=== PATIENT | female | born 1965 | race Caucasian/White ===

== ENCOUNTER 2018-03-17 11:49 | Outpatient (REF) | payer BC, SELFPAY ==
[2018-03-17 21:42] LABS: TSH 3.36 uIU/mL (0.358-3.74)
== END 2018-03-17 12:09 ==
LOC: NCHCN 11:49
PROVIDERS: PCP Family Medicine; Visit Provider Registered Nurse
DX: E03.9 Hypothyroidism, unspecified (principal)
CPT/HCPCS: 84443

== ENCOUNTER 2019-04-30 18:04 | Outpatient (REF) | payer BC, SELFPAY ==
[2019-04-30 21:31] LABS: TSH (W/Ref FT4) 4.13 uIU/mL (0.36-3.74)
[2019-04-30 21:49] LABS: FREE T4 0.88 ng/dL (0.76-1.46)
== END 2019-04-30 18:24 ==
LOC: NCHCN 18:04
PROVIDERS: PCP Family Medicine; Visit Provider Registered Nurse
DX: R53.83 Other fatigue (principal)
CPT/HCPCS: 84439; 84443

== ENCOUNTER 2019-06-15 15:08 | Outpatient (REF) | payer BC, SELFPAY ==
[2019-06-15 22:03] LABS: TSH (W/Ref FT4) 1.81 uIU/mL (0.36-3.74)
== END 2019-06-15 15:28 ==
LOC: NCHCN 15:08
PROVIDERS: PCP Family Medicine; Visit Provider Registered Nurse
DX: E03.9 Hypothyroidism, unspecified (principal)
CPT/HCPCS: 84443

== ENCOUNTER 2020-10-07 16:28 | Outpatient (REF) | payer BC, SELFPAY ==
[2020-10-07 21:02] LABS: TSH 1.64 uIU/mL (0.36-3.74)
== END 2020-10-07 16:29 | disposition home or self-care (01) ==
LOC: NCHCN 16:28
PROVIDERS: PCP Family Medicine; Visit Provider Registered Nurse
DX: E03.9 Hypothyroidism, unspecified (principal)
CPT/HCPCS: 84443

== ENCOUNTER 2022-02-21 21:17 | Outpatient (REF) | payer BC, SELFPAY ==
[2022-02-21 21:44] LABS: HCT 40.4 % (36.0-46.0); HGB 13.4 g/dL (11.2-15.7); MCH 30.4 pg (27.0-33.0); MCHC 33.2 % (32.0-36.0); MCV 92 fL (80-95); MPV 10.4 fL (8.0-11.0); Platelet Count 252 10^3/uL (130-400); RBC 4.41 10^6/uL (3.93-5.22); RDW 11.7 % (11.7-14.6); RDW-SD 39.6 fL; WBC 5.74 10^3/uL (4.4-10.8)
[2022-02-21 22:04] LABS: ALT 31 U/L (14-59); AST 21 U/L (15-37); Albumin 4.1 g/dL (3.4-5.0); Alkaline Phosphatase 73 U/L (46-116); Anion Gap 7.6 mmol/L (3-11); BUN 23 mg/dL (7-18); Bilirubin, Total 0.3 mg/dL (0.2-1.0); CO2 29.4 mmol/L (21.0-32.0); Calcium 9.4 mg/dL (8.5-10.1); Calculated LDL 156 mg/dL (<100); Chloride 104 mmol/L (98-107); Cholesterol 275 mg/dL (<200); Estimated GFR 66.95 (mL/min/1.73m2); Glucose 79 mg/dL (74-106); HDL Cholesterol 48 mg/dL (40-60); Potassium 4.1 mmol/L (3.5-5.1); Sodium 141 mmol/L (136-145); TSH 2.55 uIU/mL (0.36-3.74); Total Protein 7.5 g/dL (6.4-8.2); Triglyceride 357 mg/dL (<150)
== END 2022-02-21 21:18 | disposition home or self-care (01) ==
LOC: NCHCN 21:17
PROVIDERS: PCP Family Medicine; Visit Provider Registered Nurse
DX: E03.9 Hypothyroidism, unspecified (principal); E78.5 Hyperlipidemia, unspecified; Z00.00 Encounter for general adult medical examination without abnormal findings
CPT/HCPCS: 80053; 80061; 85027; 84443